=== PATIENT | male | born 1985 | race Two or more races ===

== ENCOUNTER 2017-10-03 23:20 | Emergency (ER) | payer MEDICAID ==
[~2017-10-03] VITALS: Ht 162.6 cm; Wt 63.5 kg
[~2017-10-03 23:20] MED LIST: ABILIFY15 MG ORAL
[2017-10-04 00:52] VITALS: BP 110/67
[2017-10-04 02:19] VITALS: BP 114/69
[2017-10-04 02:24] LABS: ANION GAP 21 mmol/L (5-15); BLOOD UREA NITROGEN 58 mg/dL (7-18); CALCIUM 10.6 MG/DL (8.5-10.1); CARBON DIOXIDE 22 MMOL/L (21-32); CHLORIDE 82 MMOL/L (98-107); CREATININE 7.9 MG/DL (0.55-1.30); POTASSIUM 4.6 MMOL/L (3.5-5.1); SODIUM 125 MMOL/L (136-145)
[2017-10-04 02:27] LABS: HEMOGLOBIN 17.7 G/DL (14.2-18.0); MEAN CORPUSCULAR VOLUME 89 FL (80-99); PLATELET COUNT 313 K/UL (150-450); RED BLOOD COUNT 5.65 M/UL (4.70-6.10); RED CELL DISTRIBUTION WIDTH 10.6 % (11.6-14.8)
[2017-10-04 02:35] LABS: WHITE BLOOD COUNT 26.8 K/UL (4.8-10.8)
[2017-10-04] MEDS ORDERED: BUPROPION XL300 MG ORAL (02:52)
[2017-10-04] MEDS ORDERED: SEROQUEL300 MG ORAL (02:52)
[2017-10-04 03:12] LABS: CKMB 0.9 NG/ML (0.0-3.6)
[2017-10-04 03:17] LABS: APPEARANCE,URINE CLOUDY; BILIRUBIN, URINE NEGATIVE (NEGATIVE); GLUCOSE, URINE (UA) NEGATIVE (NEGATIVE); KETONES,URINE NEGATIVE (NEGATIVE); LEUKOCYTE ESTERASE ,URINE 1+ (NEGATIVE); NITRITE,URINE NEGATIVE (NEGATIVE); PH,URINE 5 (4.5-8.0); PROTEIN,URINE 3+ (NEGATIVE); UROBILINOGEN,URINE NORMAL MG/DL (0.0-1.0)
[2017-10-04 03:21] LABS: COLOR,URINE BROWN
--- NOTE | 2017-10-04 03:28 | Emergency Room Report ---
History of Present Illness General Chief Complaint: General Complaint Source: Patient Present Illness HPI This a 32-year-old male who has a history of drug abuse. He said he uses heroin , cocaine, methamphetamines, alcohol or anything he can get. He presents with chief complaint of body pain. Last time this happened he said he had kidney failure and high potassium. He denies suicidal thought homicidal thought. Denies any other complaint. Pain is 9 out of 10. Allergies: Coded Allergies: No Known Allergies (Unverified , 03/18/17) Patient History Past Medical History: see triage record, old chart reviewed Past Surgical History: none Pertinent Family History: none Social History: Reports: smoking, alcohol use, drug use Immunizations: other Reviewed Nursing Documentation: PMH: Agreed; PSxH: Agreed Nursing Documentation-PMH Hx Gastrointestinal Problems: Yes - ACID REFLUX History Of Psychiatric Problem: Yes - MAJOR DEPRESSION Review of Systems Eye: Denies: eye pain, blurred vision ENT: Denies: ear pain, nose congestion, throat swelling Respiratory: Denies: cough, shortness of breath Cardiovascular: Denies: chest pain, palpitations Gastrointestinal: Denies: abdominal pain, diarrhea, nausea, vomiting Musculoskeletal: Denies: back pain, joint pain Skin: Denies: rash Neurological: Denies: headache, numbness Endocrine: Denies: increased thirst, increased urine Hematologic/Lymphatic: Denies: easy bruising All Other Systems: negative except mentioned in HPI Physical Exam Vital Signs Date Time Temp Pulse Resp B/P (MAP) Pulse Ox O2 Delivery O2 Flow Rate FiO2 10/04/17 00:05 95.1 118 20 94/59 96 Room Air 95.2 vitals with tachycardia Sp02 EP Interpretation: reviewed, normal General Appearance: well appearing, no apparent distress, alert, other - patient is agitated. Can't sit still. Head: normocephalic, atraumatic Eyes: bilateral eye PERRL, bilateral eye EOMI ENT: hearing grossly normal, normal pharynx Neck: full range of motion, supple, no meningismus Respiratory: chest non-tender, lungs clear, normal breath sounds Cardiovascular #1: regular rate, rhythm, no murmur Gastrointestinal: normal bowel sounds, non tender, no mass, no organomegaly, no bruit, non-distended Musculoskeletal: back normal, gait/station normal, normal range of motion Psychiatric: mood/affect normal Skin: warm/dry Medical Decision Making Diagnostic Impression: Primary Impression: Acute renal failure (ARF) Qualified Codes: N17.9 - Acute kidney failure, unspecified Additional Impressions: Polysubstance abuse Leukocytosis Qualified Codes: D72.829 - Elevated white blood cell count, unspecified ER Course Patient with polysubstance abuse and kidney failure. Kidney function much worse than it was when he was discharged in a few years ago. Still making urine. Patient has a leukocytosis which is unchanged from before. When he left here 4 years ago, his creatinine was 4. There is no evidence of infection. He is calmer now. I discussed case with Dr. Reynolds who accepted pt for transfer to [place]. Asked that I ordered a cxr. Lab Results Impression labs with elevated BUN/creatinine and creat Rhythm Strip Diag. Results Rhythm Strip Time: 03:28 EP Interpretation: yes Rate: 90 Rhythm: NSR, no PVC's, no ectopy Chest X-Ray Diagnostic Results Chest X-Ray Diagnostic Results : Chest X-Ray Ordered: Yes # of Views/Limited/Complete: 1 View Indication: Other EP Interpretation: Yes Interpretation: no consolidation, no effusion, no pneumothorax, no acute cardiopulmonary disease Impression: No acute disease Electronically Signed by: Rocky Ojeda MD Last Vital Signs Date Time Temp Pulse Resp B/P (MAP) Pulse Ox O2 Delivery O2 Flow Rate FiO2 10/04/17 02:19 87 20 114/69 97 Room Air 10/04/17 00:05 95.1 95.2 Status: improved Disposition: XFER SHT-TRM HOSP Condition: Stable Referrals: NON PHYSICIAN (PCP) ROCKY OJEDA M.D. Oct 04, 2017 03:28
[2017-10-04 04:57] VITALS: BP 132/82
--- NOTE | 2017-10-04 05:17 | Diagnostic Imaging Report ---
EXAM: XR Chest, 1 View CLINICAL HISTORY: SOB TECHNIQUE: Frontal view of the chest. COMPARISON: No relevant prior studies available. FINDINGS: Hypoventilated chest. Heart size appears within normal limits. No overt edema, consolidation or other acute cardiopulmonary process. IMPRESSION: No acute cardiopulmonary process
[2017-10-04 05:50] VITALS: BP 132/82
== END 2017-10-04 05:50 | disposition left against medical advice (07) ==
LOC: EMR 23:55
DX: N17.9 Acute kidney failure, unspecified (principal); D72.829 Elevated white blood cell count, unspecified; F10.10 Alcohol abuse, uncomplicated; F15.10 Other stimulant abuse, uncomplicated; F14.10 Cocaine abuse, uncomplicated; F11.10 Opioid abuse, uncomplicated; F32.9 Major depressive disorder, single episode, unspecified; F17.200 Nicotine dependence, unspecified, uncomplicated; K21.9 Gastro-esophageal reflux disease without esophagitis; R00.0 Tachycardia, unspecified; M79.1 Myalgia; Z53.21 Procedure and treatment not carried out due to patient leaving prior to being seen by health care provider
CPT/HCPCS: 36415; 71045; 80048; 81003; 82550; 82553; 85007; 85025; 96360; 96361; 99284